=== PATIENT | female | born 1985 | race Caucasian/White ===

== ENCOUNTER → 2019-08-13 15:07 | Outpatient (CLI) | payer OTHER, MEDICAID, SELFPAY ==
[2019-08-13 16:25] LABS: UR Morphine/Opiate cutoff 300 Negative (Negative); Ur Creatinine Normal (Normal); Ur Specific Gravity Normal (Normal); Urine Amphetamines Positive (Negative); Urine Cocaine Negative (Negative); Urine Tetrahydrocannabinol Negative (Negative); Urine pH Normal (Normal)
[2019-08-13 16:26] LABS: Urine Barbiturates Negative (Negative); Urine Benzodiazepines Negative (Negative); Urine MDMA Negative (Negative); Urine Methadone Negative (Negative); Urine Methamphetamines Negative (Negative); Urine Oxycodone Negative (Negative); Urine Phencyclidine Negative (Negative); Urine Tricyclic Antidepressant Negative (Negative)
== END ==
DX: Z04.89 Encounter for examination and observation for other specified reasons (principal)
CPT/HCPCS: 80305